=== PATIENT | male | born 1980 | race Caucasian/White ===

== ENCOUNTER 2024-09-23 16:03 | Emergency (ER) | payer OTHER, SELFPAY ==
[2024-09-23] VITALS (7 sets, daily range): BP systolic 105–113; BP diastolic 62–70; PULSE 55–68; RESP 7–19; TEMP 36.7–36.8; O2SAT 96–99
--- NOTE | ~2024-09-23 | CT_ITS ---
EXAMINATION: CTA chest PE protocol DATE: 09/23/2024 18:43 INDICATION: Syncope. TECHNIQUE: Computed tomography angiography (CTA) of the chest was performed with 100 mL Omnipaque-350 intravenous contrast timed to evaluate the pulmonary arteries. Coronal maximum intensity projection 3D-reconstructions were created by the technologist. Automated exposure control and iterative reconst ruction technique were employed. The dose-length product was 331.92 mGy-cm. COMPARISON: None. FINDINGS: The lungs demonstrate mild atelectasis. No pleural effusion. The heart size is normal. No p ericardial effusion. There is no pulmonary embolus. There are Schmorl's nodes at many levels. IMPRESSION: 1. No pulmonary embolus. Reviewed, dictated and finalized at location A. RETTE LIGHTER REPAIRER IMPRESSION: 1. No pulmonary embolus.
--- NOTE | ~2024-09-23 | CT_ITS ---
EXAMINATION: CT brain wo con DATE: 09/23/2024 18:43 INDICATION: Syncope. TECHNIQUE: Computed tomography (CT) of the head was performed without intravenous contrast. The mA wa s adjusted according to patient size. Iterative reconstruction technique was employed. The dose-lengt h product was 605.33 mGy-cm. COMPARISON: None FINDINGS: There is no intracranial hemorrhage, acute infarction, or abnormal intracranial mass lesion . The ventricles are normal in size. There is mild mucosal thickening in the paranasal sinuses. The m astoid air cells are normal. The orbits are normal. IMPRESSION: 1. Normal brain. Reviewed, dictated and finalized at location A. BER'S ASSISTANT IMPRESSION: 1. Normal brain.
--- NOTE | ~2024-09-23 | XR_ITS ---
XR chest 2V Ordering provider: Christie Espinoza APRN History: 44 years Male with . syncope . Comparison: None. FINDINGS: MEDIASTINUM: The cardiac silhouette is not enlarged. LUNGS: No infiltrates, effusions or pneumothorax. OTHER: No free air under the diaphragm. IMPRESSION: No acute cardiopulmonary pathology. Reviewed, dictated and finalized at location A. AULIC BULL RIVETER OPERATOR
--- NOTE | 2024-09-23 16:33 | ECG_ITS ---
Test Date: 2024-09-23 16:27:16 Measurements Intervals [place] Rate: 59 P: 144 KS: 147 QRS: 17 QRSD: 93 T: 82 QT: 408 QTc: 407 Interpretive Statements ECTOPIC ATRIAL BRADYCARDIA POSSIBLE LEFT ATRIAL ENLARGEMENT MINIMAL Q WAVES- LAT/HIGH LAT LEADS CANNOT R/O SEPTAL INFARCT, AGE INDETERMINATE ABNORMAL ECG No previous ECG available for comparison Electronically Signed On 09-23-2024 18:36:05 ALUM PLANT OPERATOR by German Arriaga D.O.
[2024-09-23 16:47] LABS: Basophils Absolute Auto 0.1 K/mm3 (0.0-0.1); Basophils Percent Auto 0.7 % (0.2-1.2); Eosinophils Absolute Auto 0.1 K/mm3 (0-0.3); Eosinophils Percent Auto 1.3 % (0-4.4); Hematocrit 45.2 % (42.0-52.0); Hemoglobin 14.7 g/dL (14.0-18.0); Immature Granulocyte Absolute 0.03 K/mm3 (0.00-0.031); Immature Granulocyte Percent A 0.3 % (0-0.5); Lymphocytes Absolute Auto 2.34 K/mm3 (0.9-3.2); Lymphocytes Percent Auto 26.9 % (18.3-44.2); Mean Corpuscular HGB Conc 32.5 g/dl (32-36); Mean Corpuscular Hemoglobin 29.1 pg (26-34); Mean Corpuscular Volume 89.5 fl (80-100); Mean Platelet Volume 10.3 fl (7.4-10.4); Monocytes Absolute Auto 0.5 K/mm3 (0.1-0.6); Monocytes Percent Auto 6.1 % (2.6-8.5); Neutrophils Absolute Auto 5.6 K/mm3 (1.3-6.7); Neutrophils Percent Auto 64.7 % (45.5-73.1); Platelet Count Result 228 k/mm3 (150-375); Red Blood Count 5.05 M/mm3 (4.6-6.20); Red Cell Distribution Width 13.2 % (11.5-14.5); White Blood Count 8.7 K/mm3 (4.5-10.0)
[2024-09-23 16:48] LABS: Glucose Point of Care 96 mg/dl (65-105)
--- NOTE | 2024-09-23 16:59 | ED.SYNCOPE ---
HPI - Syncope General Chief Complaint: Syncope <Christie WrightShavonne Espinoza APRN - Last Filed: 09/23/24 17:05> Stated Complaint: syncope <Christie Graham DINORAH Espinoza - Last Filed: 09/23/24 17:05> Time Seen by Provider: 09/23/24 16:30 <Christie Santos Espinoza APRN - Last Filed: 09/23/24 17:05> Focused HPI: Patient is a 44-year-old male who presents to the ER after syncopal episode in the hospital. He reports he was upstairs visiting his dad who is in the ICU. Patient reports he started to feel dizzy and lightheaded so he walked out to the waiting room to sit down. He started to feel a little better so patient stood up and asked for help from someone passing by, but then he passed out. Patient denies any previous syncopal episodes. He denies any history of diabetes or cardiac history. Patient reports his only medical history is herpes, although he has been trying to cut carbohydrates lately d/t familial risk of diabetes. He denies any chest pain, shortness of breath or recent illness. GENERAL: Pallor, diaphoretic, well-nourished. HEAD: Normocephalic, atraumatic. CHEST: Clear to auscultation. ?No respiratory distress. HEART: Regular rate and rhythm.? NEURO: ?Alert and oriented x3. Patient screened in triage and initial orders placed.? ?Additional care and disposition to be based upon?diagnostic testing and treatment. <Christie Espinoza APRN - Last Filed: 09/23/24 17:05> Source: patient <Derik Amezquita PA-C - Last Filed: 09/24/24 00:56> Mode of arrival: ambulatory <Derik Amezquita PA-C - Last Filed: 09/24/24 00:56> Limitations: no limitations <Derik Amezquita PA-C - Last Filed: 09/24/24 00:56> History of Present Illness HPI narrative: Agreed triage noted above <Derik Amezquita PA-C - Last Filed: 09/24/24 00:56> Related Data Allergies/Adverse Reactions: Allergies Allergy/AdvReac Type Severity Reaction Status Date / Time No Known Allergies Allergy Verified 09/23/24 22:00 <Christie Espinoza APRN - Last Filed: 09/23/24 17:05> Review of Systems Review of Systems: All systems as dictated in HPI <Derik Amezquita PA-C - Last Filed: 09/24/24 00:56> Exam Narrative: GENERAL: Well-appearing, well-nourished, and in no acute distress. HEAD: Normocephalic, atraumatic. EYES: PERRLA and EOMI. ENT: Nares clear, no rhinorrhea or epistaxis. Mucous membranes moist. Oropharynx without tonsillar hypertrophy exudate or other lesions. NECK: Supple. No adenopathy or masses. CHEST: No respiratory distress. Clear to auscultation. No wheezes rales or rhonchi HEART: Regular rate and rhythm. No murmur heard. Normal peripheral pulses. ABDOMEN: Soft, nontender, nondistended, normal active bowel sounds. MSK: Normal range of motion. No edema. SKIN: Warm, dry, no rash. NEURO: Alert and oriented x4. No focal deficits. PSYCH: Normal mood and affect. <Derik Amezquita PA-C - Last Filed: 09/24/24 00:56> Course Vital Signs Vital signs: Vital Signs Temperature 98.1 F 09/23/24 16:08 Pulse Rate 68 09/23/24 16:08 Respiratory Rate 16 09/23/24 16:08 Blood Pressure 113/70 09/23/24 16:08 Pulse Oximetry 99 09/23/24 16:08 Oxygen Delivery Room Air 09/23/24 16:08 Temperature 98.2 F 09/23/24 22:16 Pulse Rate 61 09/23/24 22:16 Respiratory Rate 19 09/23/24 22:16 Blood Pressure 107/62 09/23/24 22:16 Pulse Oximetry 99 09/23/24 22:16 Oxygen Delivery Room Air 09/23/24 16:08 <Christie Espinoza APRN - Last Filed: 09/23/24 17:05> Vital Signs Temperature 98.1 F 09/23/24 16:08 Pulse Rate 68 09/23/24 16:08 Respiratory Rate 16 09/23/24 16:08 Blood Pressure 113/70 09/23/24 16:08 Pulse Oximetry 99 09/23/24 16:08 Oxygen Delivery Room Air 09/23/24 16:08 Temperature 98.2 F 09/23/24 22:16 Pulse Rate 61 09/23/24 22:16 Respiratory Rate 19 09/23/24 22:16 Blood Pressure 107/62 09/23/24 22:16 Pulse Oximetry 99 09/23/24 22:16 Oxygen Delivery Room Air 09/23/24 16:08 <Derik Amezquita PA-C - Last Filed: 09/24/24 00:56> MDM - Syncope MDM Narrative Medical decision making narrative: This is a 44-year-old male who presents to the ED for chief complaint of syncopal episode today while visiting family member in our ICU. Vitals are normal. Exam is benign overall. On my evaluation the patient is asymptomatic. No ischemia on the EKG Lab work is grossly unremarkable. Urinalysis shows 1+ ketones which may indicate some dehydration. Head CT, CTA chest to both negative for acute findings. Chest x-ray negative as well. Patient did have a prodrome with the syncopal episodes today and did near syncope with blood draw indicating orthostatic versus vasovagal dizziness/syncope. Low suspicion for cardiac cause today. Patient will be discharged in stable condition. Supportive measures discussed and return precautions given. Patient is understanding and agreeable with plan for discharge with PCP follow-up. <Derik Amezquita PA-C - Last Filed: 09/24/24 00:56> Lab Data Result diagrams: 09/23/24 16:38 09/23/24 16:38 <Christie Espinoza APRN - Last Filed: 09/23/24 17:05> Labs: Lab Results 09/23/24 09/23/24 09/23/24 Range/Units 16:36 16:38 18:18 WBC 8.7 (4.5-10.0) K/mm3 RBC 5.05 (4.6-6.20) M/mm3 Hgb 14.7 (14.0-18.0) g/dL Hct 45.2 (42.0-52.0) % MCV 89.5 (80-100) fl MCH 29.1 (26-34) pg MCHC 32.5 (32-36) g/dl RDW 13.2 (11.5-14.5) % Plt Count 228 (150-375) k/mm3 MPV 10.3 (7.4-10.4) fl Immature Gran % (Auto) 0.3 (0-0.5) % Neut % (Auto) 64.7 (45.5-73.1) % Lymph % (Auto) 26.9 (18.3-44.2) % [place] % (Auto) 6.1 (2.6-8.5) % Eos % (Auto) 1.3 (0-4.4) % Baso % (Auto) 0.7 (0.2-1.2) % Lymph # (Auto) 2.34 (0.9-3.2) K/mm3 [place] # (Auto) 0.5 (0.1-0.6) K/mm3 Eos # (Auto) 0.1 (0-0.3) K/mm3 Baso # (Auto) 0.1 (0.0-0.1) K/mm3 Abs Immat Gran (auto) 0.03 (0.00-0.031) K/mm3 Absolute Neuts (auto) 5.6 (1.3-6.7) K/mm3 Absolute Nucleated RBC 0.000 (0.0-0.012) K/mm3 Nucleated RBC % 0.0 (0.0-0.2) % PT 13.6 (11.1-14.7) Seconds INR 1.0 APTT 25.3 (22.3-36.8) Seconds Sodium 138 (137-145) mmol/L Potassium 3.4 (3.4-5.0) mmol/L Chloride 103 (98-107) mmol/L Carbon Dioxide 27 (22-30) mmol/L Anion Gap 8 (4-12) mmol/L BUN 15 (9-20) mg/dL Creatinine 1.10 (0.7-1.3) mg/dL Estim Creat Clear Calc 86 ml/min Estimated GFR > 60 (59 - ) Glucose 102 (65-110) mg/dL POC Capillary Glucose 96 (65-105) mg/dl Calcium 9.1 (8.4-10.2) mg/dL Magnesium 1.9 (1.6-2.3) mg/dL Total Bilirubin 0.7 (0.2-1.3) mg/dL AST 23 (17-59) U/L ALT 19 (6-50) U/L Alkaline Phosphatase 65 (38-126) U/L Troponin I < 0.012 (0.000-0.034) ng/mL NT-Pro-B Natriuret Pep < 20 (19.9-100) pg/mL Total Protein 8.0 (6.3-8.2) g/dL Albumin 4.7 (3.5-5.1) g/dL Urine Color Yellow (Yellow) Urine Appearance Clear (Clear) Urine pH 6.0 (5.0-9.0) Ur Specific [place] Range 1.020 (1.001-1.035) Urine Protein Trace (Negative) mg/dL Urine Glucose (UA) Trace H (Negative) mg/dL Urine Ketones 1+ H (Negative) mg/dL Ur Blood (Man) Negative (Negative) Urine Nitrate Negative (Negative) Urine Bilirubin Negative (Negative) Urine Urobilinogen 1.0 (<2.0) mg/dL Add Ur Microanalysis Reviewed Leukocyte Esterase Rfl Negative (Negative) SEVEN/UL Urine RBC 0-2 (0-2) /hpf Urine WBC 6-10 H (0-3) /hpf Ur Squamous Epith Cells Occasional (Few) /hpf Urine Bacteria None seen /hpf Urine Casts 6-10 <Christie Espinoza, PRODUCTION TOOL ENGINEER - Last Filed: 09/23/24 17:05> Lab Results 09/23/24 09/23/24 09/23/24 Range/Units 16:36 16:38 18:18 WBC 8.7 (4.5-10.0) K/mm3 RBC 5.05 (4.6-6.20) M/mm3 Hgb 14.7 (14.0-18.0) g/dL Hct 45.2 (42.0-52.0) % MCV 89.5 (80-100) fl MCH 29.1 (26-34) pg MCHC 32.5 (32-36) g/dl RDW 13.2 (11.5-14.5) % Plt Count 228 (150-375) k/mm3 MPV 10.3 (7.4-10.4) fl Immature Gran % (Auto) 0.3 (0-0.5) % Neut % (Auto) 64.7 (45.5-73.1) % Lymph % (Auto) 26.9 (18.3-44.2) % [place] % (Auto) 6.1 (2.6-8.5) % Eos % (Auto) 1.3 (0-4.4) % Baso % (Auto) 0.7 (0.2-1.2) % Lymph # (Auto) 2.34 (0.9-3.2) K/mm3 [place] # (Auto) 0.5 (0.1-0.6) K/mm3 Eos # (Auto) 0.1 (0-0.3) K/mm3 Baso # (Auto) 0.1 (0.0-0.1) K/mm3 Abs Immat Gran (auto) 0.03 (0.00-0.031) K/mm3 Absolute Neuts (auto) 5.6 (1.3-6.7) K/mm3 Absolute Nucleated RBC 0.000 (0.0-0.012) K/mm3 Nucleated RBC % 0.0 (0.0-0.2) % PT 13.6 (11.1-14.7) Seconds INR 1.0 APTT 25.3 (22.3-36.8) Seconds Sodium 138 (137-145) mmol/L Potassium 3.4 (3.4-5.0) mmol/L Chloride 103 (98-107) mmol/L Carbon Dioxide 27 (22-30) mmol/L Anion Gap 8 (4-12) mmol/L BUN 15 (9-20) mg/dL Creatinine 1.10 (0.7-1.3) mg/dL Estim Creat Clear Calc 86 ml/min Estimated GFR > 60 (59 - ) Glucose 102 (65-110) mg/dL POC Capillary Glucose 96 (65-105) mg/dl Calcium 9.1 (8.4-10.2) mg/dL Magnesium 1.9 (1.6-2.3) mg/dL Total Bilirubin 0.7 (0.2-1.3) mg/dL AST 23 (17-59) U/L ALT 19 (6-50) U/L Alkaline Phosphatase 65 (38-126) U/L Troponin I < 0.012 (0.000-0.034) ng/mL NT-Pro-B Natriuret Pep < 20 (19.9-100) pg/mL Total Protein 8.0 (6.3-8.2) g/dL Albumin 4.7 (3.5-5.1) g/dL Urine Color Yellow (Yellow) Urine Appearance Clear (Clear) Urine pH 6.0 (5.0-9.0) Ur Specific [place] 1.020 (1.001-1.035) Urine Protein Trace (Negative) mg/dL Urine Glucose (UA) Trace H (Negative) mg/dL Urine Ketones 1+ H (Negative) mg/dL Ur Blood (Man) Negative (Negative) Urine Nitrate Negative (Negative) Urine Bilirubin Negative (Negative) Urine Urobilinogen 1.0 (<2.0) mg/dL Add Ur Microanalysis Reviewed Leukocyte Esterase Rfl Negative (Negative) SEVEN/UL Urine RBC 0-2 (0-2) /hpf Urine WBC 6-10 H (0-3) /hpf Ur Squamous Epith Cells Occasional (Few) /hpf Urine Bacteria None seen /hpf Urine Casts 6-10 <Derik Amezquita PA-C - Last Filed: 09/24/24 00:56> Discharge Plan Discharge Clinical Impression: Orthostatic dizziness <Christie Espinoza APRN - Last Filed: 09/23/24 17:05> Patient Disposition: Home, Self-Care <Christie Espinoza APRN - Last Filed: 09/23/24 17:05> Condition: Stable <Christie Espinoza APRN - Last Filed: 09/23/24 17:05> Instructions: Antibiotic Form, Syncope (ED) <Christie Espinoza APRN - Last Filed: 09/23/24 17:05> Additional Instructions: Your exam who today is reassuring overall. Please make sure they stay well hydrated follow-up with your PCP on this issue. If you have any new or worsening symptoms please return to the ER for further evaluation. <Christie Espinoza APRN - Last Filed: 09/23/24 17:05> Follow-up/Referrals: PHYSICIAN NOT ON STAFF,NONSTAFF [Non-Staff] - <Christie Espinoza APRN - Last Filed: 09/23/24 17:05> Time of Disposition: 22:00 <Christie Espinoza APRN - Last Filed: 09/23/24 17:05> 22:00 <Derik Amezquita PA-C - Last Filed: 09/24/24 00:56>
[2024-09-23 17:03] LABS: Alanine Aminotransferase 19 U/L (6-50); Albumin Level 4.7 g/dL (3.5-5.1); Alkaline Phosphatase 65 U/L (38-126); Anion Gap 8 mmol/L (4-12); Aspartate Amino Transferase 23 U/L (17-59); Bilirubin,Total 0.7 mg/dL (0.2-1.3); Blood Urea Nitrogen 15 mg/dL (9-20); Calcium 9.1 mg/dL (8.4-10.2); Carbon Dioxide 27 mmol/L (22-30); Chloride 103 mmol/L (98-107); Estimated CRCL calculation 86 ml/min; Estimated Glomerular Filt Rate > 60; Glucose 102 mg/dL (65-110); Potassium 3.4 mmol/L (3.4-5.0); Sodium 138 mmol/L (137-145)
[2024-09-23 17:18] LABS: Magnesium 1.9 mg/dL (1.6-2.3)
[2024-09-23 17:19] LABS: Prothrombin Time 13.6 Seconds (11.1-14.7)
[2024-09-23 17:20] LABS: Partial Thromboplastin Time 25.3 Seconds (22.3-36.8)
[2024-09-23 17:30] LABS: NT Pro B Type Natriuretic Pept < 20 pg/mL (19.9-100); Troponin I < 0.012 ng/mL (0.000-0.034)
[2024-09-23 18:41] LABS: Add Urine Microscopic? YES; Appearance Urine Clear (Clear); Bacteria Urine None Seen /hpf; Bilirubin Urine Negative (Negative); Blood Urine Negative (Negative); Color Urine Yellow (Yellow); Glucose Urine UA Trace mg/dL (Negative); Ketones Urine 1+ mg/dL (Negative); Leukocyte Esterase Ur Negative LEU/UL (Negative); Need Manual Microscopic Reviewed; Nitrate Urine Negative (Negative); Protein Urine Trace mg/dL (Negative); RBC Urine 0-2 /hpf (0-2); Squamous Epithelial Cell Urine Occasional /hpf (Few)
== END 2024-09-23 22:19 | disposition home or self-care (01) ==
PROVIDERS: Registered Nurse; Emergency Provider Physician Assistant
DX: R42 Dizziness and giddiness (principal); R82.998 Other abnormal findings in urine
CPT/HCPCS: 36415; 70450; 71046; 71275; 80053; 81001; 82948; 83735; 83880; 84484; 85025; 85610; 85730; 87086; 93005; 99284; J7030; Q9967